=== PATIENT | female | born 1955 | race Caucasian/White ===

== ENCOUNTER → 2016-04-29 | Outpatient (CLI) | payer MEDICARE ==
[2016-04-29 14:45] LABS: ABSOLUTE EOSINOPHILS # (AUTO) 0.2 10^3/uL (0.0-0.6); ABSOLUTE LYMPHOCYTES (AUTO) 1.3 10^3/uL (0.5-4.7); ABSOLUTE MONOCYTES (AUTO) 0.4 10^3/uL (0.1-1.4); BASOPHILS % (AUTO) 0.6 % (0-2); EOSINOPHILS % (AUTO) 2.8 % (0-6); HEMOGLOBIN 16.6 g/dL (12.0-15.5); HGB HCT DIFFERENCE 0.8; LYMPHOCYTES % (AUTO) 18.5 % (13-45); MEAN CORPUSCULAR HEMOGLOBIN 29.5 pg (27.0-33.4); MEAN CORPUSCULAR HGB CONC 33.9 g/dL (32.0-36.0); MEAN CORPUSCULAR VOLUME 87 fl (80-97); MONOCYTES % (AUTO) 5.3 % (3-13); RED BLOOD COUNT 5.64 10^6/uL (3.72-5.28); RED CELL DISTRIBUTION WIDTH 13.5 % (11.5-14.0); SEGMENTED NEUTROPHILS % (AUTO) 72.8 % (42-78); WHITE BLOOD COUNT 6.8 10^3/uL (4.0-10.5)
[2016-04-29 15:04] LABS: BLOOD UREA NITROGEN 17 mg/dL (7-20); CALCIUM 10.4 mg/dL (8.4-10.2); CREATININE RESULT 0.64 mg/dL (0.52-1.25); GLUCOSE 91 mg/dL (75-110)
[2016-04-29 15:05] LABS: ALANINE AMINOTRANSFERASE 40 U/L (9-52); ALBUMIN 4.8 g/dL (3.5-5.0); ALKALINE PHOSPHATASE 119 U/L (38-126); ANION GAP 11 (5-19); ASPARTATE AMINO TRANSFERASE 33 U/L (14-36); BILIRUBIN,DIRECT 0.2 mg/dL (0.0-0.4); BILIRUBIN,TOTAL 0.6 mg/dL (0.2-1.3); CARBON DIOXIDE 32 mmol/L (22-30); CHLORIDE 100 mmol/L (98-107); POTASSIUM 4.5 mmol/L (3.6-5.0); SODIUM 143.1 mmol/L (137-145)
[2016-04-29 16:13] LABS: FOLATE > 20.00 ng/mL (>2.76)
--- NOTE | 2016-04-29 18:14 | EKG REPORT ---
SEVERITY:- BORDERLINE ECG - SINUS RHYTHM PROBABLE LEFT ATRIAL ABNORMALITY : Confirmed by: Darrion Ricketts MD 29-Apr-2016 18:13:39
== END ==
LOC: OD 13:33
PROVIDERS: ATTEND Physician Assistant Medical
DX: E66.9 Obesity, unspecified (principal); F33.1 Major depressive disorder, recurrent, moderate; F41.1 Generalized anxiety disorder; F90.0 Attention-deficit hyperactivity disorder, predominantly inattentive type; Z79.891 Long term (current) use of opiate analgesic
CPT/HCPCS: 93005; 36415; 82746; 84443; 85025; 80053; 93010; G0480; 80358

== ENCOUNTER → 2016-08-15 | Outpatient (CLI) | payer MEDICARE ==
--- NOTE | 2016-08-15 12:41 | RADIOLOGY REPORT (SQ) ---
EXAM DESCRIPTION: CT CHEST WITH COMPLETED DATE/TIME: 08/15/2016 10:31 am REASON FOR STUDY: DYSPNEA R06.00 DYSPNEA, UNSPECIFIED COMPARISON: Chest radiograph 12/29/2015 TECHNIQUE: CT scan of the chest performed using helical scanning technique with dynamic intravenous contrast injection. Images reviewed with lung, soft tissue and bone windows. Reconstructed coronal and sagittal MPR images reviewed. All images stored on PACS. All CT scanners at this facility use dose modulation, iterative reconstruction, and/or weight based d osing when appropriate to reduce radiation dose to as low as reasonably achievable (ALARA). [facility]: Dose Right [facility]: CareDose [facility]: Dose Right [facility]: Teradose 4D [facility]: [employer] CONTRAST TYPE AND DOSE: contrast/concentration: Isovue 370.00 mg/ml; Total Contrast Delivered: 80.0 ml; Total Saline Delivered: 55.0 ml RENAL FUNCTION: Creatinine 0.6 RADIATION DOSE: Up-to-date CT equipment and radiation dose reduction techniques were employed. CTDIv ol: 16.1 mGy. DLP: 610 mGy-cm. . LIMITATIONS: None. FINDINGS: LUNGS AND PLEURA: Scattered areas of scarring without a specific pattern. No effusions. No nodules. HILAR AND MEDIASTINAL STRUCTURES: No identified masses or abnormal nodes. HEART AND VASCULAR STRUCTURES: No aneurysm or dissection. No central pulmonary emboli. No pericardi al effusion. HARDWARE: None in the chest. UPPER ABDOMEN: No significant findings. Limited exam. THYROID AND OTHER SOFT TISSUES: No masses. No adenopathy. BONES: Scoliosis. OTHER: No other significant finding. IMPRESSION: Minimal areas of scarring. No focal pattern of interstitial lung disease. TECHNICAL DOCUMENTATION: JOB ID: [id number] Quality ID # [id number]: Final reports with documentation of one or more dose reduction techniques (e.g., Au tomated exposure control, adjustment of the mA and/or kV according to patient size, use of iterative reconstruction technique) 2010 [employer]- All Rights Reserved
== END ==
LOC: RAD 10:05
PROVIDERS: ATTEND Internal Medicine Pulmonary Disease
DX: R06.00 Dyspnea, unspecified (principal)
CPT/HCPCS: 71260; 82565

== ENCOUNTER → 2016-08-16 | Outpatient (CLI) | payer MEDICARE ==
[~2016-08-16] MED LIST: ALBUTEROL SULFATE 0.083% NEB 2.5 MG/3 ML AMPUL NEB ONE
[2016-08-16 13:50] LABS: ARTERIAL BLOOD BASE EXCESS -0.7 mmol/L
--- NOTE | 2016-08-18 11:08 | PULMONARY FUNCTION TEST ---
DATE OF SERVICE: 08/16/2016 THE VITAL CAPACITY IS SLIGHTLY DECREASED. THE EXPIRATORY FLOW RATES ARE SLIGHTLY DECREASED. THE FEV1/VC IS 80%, PREDICTED: 84% LUNG VOLUMES BY NITROGEN WASH OUT METHOD SHOW: TLC IS 86% OF PREDICTED FRC IS 116% OF PREDICTED RV IS 109% OF PREDICTED THE DLCO IS 15.5, 65% OF PREDICTED. THE RV/TLC RATIO IS 47% PREDICTED 38% AFTER BRONCHODILATOR, EXPIRATORY FLOW RATES SHOW NO SIGNIFICANT CHANGE. IMPRESSION: GOOD PATIENT EFFORT. SLIGHT OBSTRUCTIVE DEFECT. LUNG VOLUMES ARE NORMAL. DIFFUSING CAPACITY IS MODERATELY DECREASED. CC: MICHELLE CHRISTIANSON MD > NICOLE
== END ==
LOC: RT 13:24
PROVIDERS: ATTEND Internal Medicine Pulmonary Disease
DX: R06.00 Dyspnea, unspecified (principal)
CPT/HCPCS: 82803; 36600; 94729 ×2; 94727 ×2; 94060 ×2; A9270

== ENCOUNTER → 2017-11-06 | Outpatient (CLI) | payer MEDICARE ==
--- NOTE | 2017-11-06 16:01 | EKG REPORT ---
SEVERITY:- OTHERWISE NORMAL ECG - SINUS OR ECTOPIC ATRIAL RHYTHM : Confirmed by: Amy Jones 06-Nov-2017 15:59:25
== END ==
LOC: OD 14:08
PROVIDERS: ATTEND Physician Assistant
DX: G89.4 Chronic pain syndrome (principal); Z79.891 Long term (current) use of opiate analgesic
CPT/HCPCS: 93005; 36415; 93010; G0480; 80358

== ENCOUNTER → 2019-01-08 | Outpatient (CLI) | payer MEDICARE ==
--- NOTE | 2019-01-08 14:29 | EKG REPORT ---
SEVERITY:- NORMAL ECG - SINUS RHYTHM : Confirmed by: Loulou Brock MD 08-Jan-2019 14:28:15
== END ==
LOC: OD 10:14
PROVIDERS: ATTEND Physician Assistant
DX: Z79.891 Long term (current) use of opiate analgesic (principal)
CPT/HCPCS: 93005; 36415; 93010; G0480; 80358

== ENCOUNTER 2020-03-06 11:05 | Emergency (ER) | payer MEDICARE ==
[2020-03-06] MEDS ORDERED: ALBUTEROL SULFATE HFA (90 MCG/PUFF) 8 GM MDI (1 MDI/ER DISP) IH ONE (11:33)
--- NOTE | 2020-03-06 11:36 | ER Document Report ---
ED Medical Screen (RME) - General Stated Complaint: DIFFICULTY BREATHING Time Seen by Provider: 03/06/20 11:28 Primary Care Provider: GEORGIA DUARTE PA-C [Primary Care Provider] - Follow up as needed Notes: Patient states that she has had difficulty breathing for the past 3 weeks. Patient went to a pain management appointment today and ran out of oxygen in the office on her portable tank. Staff there did apply oxygen in the office althou gh were unable to get a pulse ox reading. They advised patient to come here for her symptoms. Patient oxygen saturation in triage was 96%. Patient does report a history of chronic back pain and history of scarring to the lung after a pneumothorax, although denies any history of any lung disease. I have greeted and performed a rapid initial assessment of this patient. A comprehensive ED assessment and evaluation of the patient, analysis of test results and completion of the medical decision making process will be conducted by additional ED providers. TRAVEL OUTSIDE OF THE [place] IN LAST 30 DAYS: No - Related Data Allergies/Adverse Reactions: Penicillins Allergy (Verified 03/06/20 11:30) Past Medical History - Past Medical History Cardiac Medical History: Reports: Hx DVT Traumatic Medical History: Reports: Hx Pneumothorax Past Surgical History: Reports: Hx Cholecystectomy, Hx Thyroid Surgery - removed - Immunizations Hx Diphtheria, Pertussis, Tetanus Vaccination: Yes Physical Exam - Vital signs Vitals: Temp Pulse Resp BP Pulse Ox 97.9 F 80 24 H 109/52 L 96 03/06/20 11:23 03/06/20 11:23 03/06/20 11:23 03/06/20 11:23 03/06/20 11:23 - Respiratory Respiratory status: Tachypnea Chest status: Nontender Breath sounds: Wheezing - Scattered Course - Vital Signs Vital signs: Temp Pulse Resp BP Pulse Ox 97.9 F 80 24 H 109/52 L 96 03/06/20 11:23 03/06/20 11:23 03/06/20 11:23 03/06/20 11:23 03/06/20 11:23 Doctor's Discharge - Discharge Referrals: GEORGIA DUARTE PA-C [Primary Care Provider] - Follow up as needed
--- NOTE | 2020-03-06 12:50 | RADIOLOGY REPORT (SQ) ---
EXAM DESCRIPTION: CHEST SINGLE VIEW IMAGES COMPLETED DATE/TIME: 03/06/2020 12:23 pm REASON FOR STUDY: sob COMPARISON: 12/29/2015 EXAM PARAMETERS: NUMBER OF VIEWS: One view. TECHNIQUE: Single frontal radiographic view of the chest acquired. RADIATION DOSE: NA LIMITATIONS: None. FINDINGS: LUNGS AND PLEURA: No focal consolidation, mass or pneumothorax. No pleural effusion. MEDIASTINUM AND HILAR STRUCTURES: No masses. Contour normal. HEART AND VASCULAR STRUCTURES: Heart normal in size. Normal vasculature. BONES: Dextroconvex lateral curvature of the lower thoracic spine. HARDWARE: None in the chest. OTHER: No other significant finding. IMPRESSION: No evidence of acute cardiopulmonary abnormality. TECHNICAL DOCUMENTATION: JOB ID: [id number] 2010 [employer]- All Rights Reserved Reading location - IP/workstation name: [email or web address]
[2020-03-06 13:45] LABS: ABSOLUTE EOSINOPHILS # (AUTO) 0.1 10^3/uL (0.0-0.6); ABSOLUTE LYMPHOCYTES (AUTO) 0.7 10^3/uL (0.5-4.7); ABSOLUTE MONOCYTES (AUTO) 0.3 10^3/uL (0.1-1.4); ABSOLUTE NEUT (AUTO) 5.9 10^3/uL (1.7-8.2); BASOPHILS % (AUTO) 0.5 % (0-2); EOSINOPHILS % (AUTO) 1.4 % (0-6); HEMATOCRIT 26.5 % (36.0-47.0); HEMOGLOBIN 8.7 g/dL (12.0-15.5); LYMPHOCYTES % (AUTO) 10.3 % (13-45); MEAN CORPUSCULAR HEMOGLOBIN 27.4 pg (27.0-33.4); MEAN CORPUSCULAR HGB CONC 32.7 g/dL (32.0-36.0); MEAN CORPUSCULAR VOLUME 84 fl (80-97); MONOCYTES % (AUTO) 4.2 % (3-13); PLATELET COUNT 212 10^3/uL (150-450); RED BLOOD COUNT 3.17 10^6/uL (3.72-5.28); RED CELL DISTRIBUTION WIDTH 14.7 % (11.5-14.0); SEGMENTED NEUTROPHILS % (AUTO) 83.6 % (42-78); TOTAL CELLS COUNTED % (AUTO) 100 %; WHITE BLOOD COUNT 7.1 10^3/uL (4.0-10.5)
[2020-03-06 13:56] LABS: ALBUMIN 3.5 g/dL (3.5-5.0); ALKALINE PHOSPHATASE 100 U/L (38-126); ANION GAP 10 (5-19); ASPARTATE AMINO TRANSFERASE 21 U/L (14-36); BILIRUBIN,DIRECT 0.5 mg/dL (0.0-0.4); BILIRUBIN,TOTAL 2.3 mg/dL (0.2-1.3); BLOOD UREA NITROGEN 58 mg/dL (7-20); CALCIUM 8.7 mg/dL (8.4-10.2); CARBON DIOXIDE 33 mmol/L (22-30); CHLORIDE 92 mmol/L (98-107); CREATINE KINASE 52 U/L (30-135); GLUCOSE 108 mg/dL (75-110); POTASSIUM 3.7 mmol/L (3.6-5.0); TOTAL PROTEIN 6.9 g/dL (6.3-8.2)
[2020-03-06 14:08] LABS: NT PRO BNP 212 pg/mL (<125)
[2020-03-06 14:09] LABS: TROPONIN I < 0.012 ng/mL
[2020-03-06 14:45] LABS: INTERNATIONAL RATION (INR) 1.12; PROTHROMBIN TIME 14.6 SEC (11.4-15.4)
[2020-03-06 14:48] LABS: D-DIMER 1.22 ug/mL (0.00-0.50)
--- NOTE | 2020-03-06 15:04 | ER Document Report ---
Entered by JAEL JAY SCRIBE 03/06/20 1219 Acting as scribe for:FAUSTO PERALTA MD ED General - General Chief Complaint: Breathing Difficulty Stated Complaint: DIFFICULTY BREATHING Time Seen by Provider: 03/06/20 11:28 Primary Care Provider: GEORGIA DUARTE PA-C [PHYSICIAN CERTIFIED [employer]] - Follow up as needed Mode of Arrival: Wheelchair Information source: Patient Notes: This 64 year old female patient presents to the ED today with complaints of difficulty breathing for the past x3 weeks. Patient states that she has been on O2 dependent on 2L at home for the past x3 years and becomes short of breath with exertion even while on O2. She states that she ran out of oxygen on her portable tank while she was at the pain management office today and staff were unable to get a pulse ox reading, so they sent her here for evaluation. She does have oxygen at home. She also mentions that her left lower leg has been swollen and firm for the past x3 weeks. The patient does report that she had some veins in her left posterior calf first recently. TRAVEL OUTSIDE OF THE [place] IN LAST 30 DAYS: No - Related Data Allergies/Adverse Reactions: Penicillins Allergy (Verified 03/06/20 11:30) Home Medications: oxygen, pain management Past Medical History - General Information source: Patient, [facility] Records - Social History Smoking Status: Never Smoker Cigarette use (# per day): No Chew tobacco use (# tins/day): No Smoking Education Provided: No Frequency of alcohol use: None Drug Abuse: None Family History: Reviewed & Not Pertinent Patient has homicidal ideation: No - Past Medical History Cardiac Medical History: Reports: Hx DVT Traumatic Medical History: Reports: Hx Pneumothorax Past Surgical History: Reports: Hx Cholecystectomy, Hx Thyroid Surgery - thyroidectomy - Immunizations Hx Diphtheria, Pertussis, Tetanus Vaccination: Yes Review of Systems - Review of Systems Constitutional: No symptoms reported EENT: No symptoms reported Cardiovascular: No symptoms reported Respiratory: See HPI, Short of breath Gastrointestinal: No symptoms reported Genitourinary: No symptoms reported Female Genitourinary: No symptoms reported Musculoskeletal: See HPI, Leg swelling Skin: No symptoms reported Hematologic/Lymphatic: No symptoms reported Neurological/Psychological: No symptoms reported -: Yes All other systems reviewed and negative Physical Exam - Vital signs Vitals: Temp Pulse Resp BP Pulse Ox 97.9 F 80 24 H 109/52 L 96 03/06/20 11:23 03/06/20 11:23 03/06/20 11:23 03/06/20 11:23 03/06/20 11:23 - General General appearance: Alert In distress: None - HEENT Head: Normocephalic, Atraumatic Eyes: Normal Extraocular movements intact: Yes Pupils: PERRL Neck: Normal, Supple - Cardiovascular Rhythm: Regular Heart sounds: Normal auscultation Murmur: No - Abdominal Inspection: Morbidly Obese Distension: No distension Bowel sounds: Normal Tenderness: Nontender - Abdomen soft Organomegaly: No organomegaly - Rectal Tenderness: No Stool: Heme negative Hemorrhoids: None - Back Back: Normal, Nontender - Extremities General upper extremity: Normal inspection General lower extremity: Edema - There is pitting edema to the left lower leg around the ankle. Right lower leg is not edematous. Calf: Tender - Left calf is grossly swollen, firm, tender. The posterior aspect is ecchymotic with this grossly swollen area extending up to the popliteal fossa where it seems to curve inward into the fossa suggesting this is all contained hematoma swelling and limited to the posterior calf. - Neurological Neuro grossly intact: Yes Orientation: AAOx4 [place] Coma Scale Eye Opening: Spontaneous [place] Coma Scale Verbal: Oriented [place] Coma Scale Motor: Obeys Commands [place] Coma Scale Total: 15 - Psychological Associated symptoms: Normal affect, Normal mood - Skin Skin Temperature: Warm Skin Moisture: Dry Skin Color: Normal Course - Re-evaluation Re-evalutation: 03/06/20 19:29 Last time patient had CBC or chemistries done here was on 04/29/2016. At that time she had a hemoglobin of 16.6 with RBC of 5.64, today her hemoglobin is 8.7 with RBC of 3.17 the MCV and MCH are not appreciably changed. Her BUN was 17 with creatinine 0.64, today the BUN is 58 with a creatinine of 1.58 03/06/20 19:45 - Vital Signs Vital signs: Temp Pulse Resp BP Pulse Ox 97.9 F 80 24 H 109/52 L 96 03/06/20 11:23 03/06/20 11:23 03/06/20 11:23 03/06/20 11:23 03/06/20 11:23 - Laboratory Results Result Diagrams: 03/06/20 13:12 03/06/20 13:12 Laboratory Results Interpreted: 03/06/20 03/06/20 03/06/20 13:12 13:12 13:12 RBC 3.17 L Hgb 8.7 L Hct 26.5 L RDW 14.7 H Lymph % (Auto) 10.3 L Seg Neutrophils % 83.6 H D-Dimer Sodium 134.6 L Chloride 92 L Carbon Dioxide 33 H BUN 58 H Creatinine 1.58 H Est GFR ( Amer) 40 L Est GFR (MDRD) Non-Af 33 L Total Bilirubin 2.3 H Direct Bilirubin 0.5 H NT-Pro-B Natriuret Pep 212 H 03/06/20 13:12 RBC Hgb Hct RDW Lymph % (Auto) Seg Neutrophils % D-Dimer 1.22 H Sodium Chloride Carbon Dioxide BUN Creatinine Est GFR ( Amer) Est GFR (MDRD) Non-Af Total Bilirubin Direct Bilirubin NT-Pro-B Natriuret Pep Critical Laboratory Results Reviewed: No Critical Results - Radiology Results Radiology Results Interpreted: 03/06/20 19:25 Venous Doppler does not show DVT in the left leg. Critical Radiology Results Reviewed: No Critical Results - CTA chest shows a dilated superior vena cava and inferior vena cava and left brachiocephalic vein. Mild left cardiomegaly. There is decreased lung volume bilaterally which is increased compared to 2017. Nonspecific bilateral interstitial and groundglass opacities mildly increased since 2017. - EKG Interpretation by De EKG shows normal: Sinus rhythm, [place], Intervals, QRS Complexes, ST-T Waves Rate: Normal - 78 Rhythm: NSR, PVC's Discharge - Discharge Clinical Impression: Chronic shortness of breath, Dyspnea on exertion, Renal insufficiency Anemia Qualifiers: Anemia type: unspecified type Qualified Code(s): D64.9 - Anemia, unspecified Condition: Stable Disposition: HOME, SELF-CARE Additional Instructions: Your evaluation today shows the most likely cause of your shortness of breath is your anemia and worsening interstitial lung disease. Your left leg has a large bruised area due to venous bleeding. There is no evidence of blood clots in the vein system. Elevate your leg is much as possible to help the swelling go down. You should take copies of the CT report, and the lab work provided to follow-up with your primary care provider next week. RETURN TO THE EMERGENCY ROOM IF ANY NEW OR WORSENING SYMPTOMS. Referrals: GEORGIA DUARTE PA-C [PHYSICIAN CERTIFIED MA[employer]] - Follow up in 3-5 days I personally performed the services described in the documentation, reviewed and edited the documentation which was dictated to the scribe in my presence, and it accurately records my words and actions.
[2020-03-06] MEDS ORDERED: NORMAL SALINE 1000 ML 1,000 ML IV ONE (19:00)
--- NOTE | 2020-03-06 19:02 | RADIOLOGY REPORT (SQ) ---
EXAM DESCRIPTION: VENOUS UNILATERAL LOWER IMAGES COMPLETED DATE/TIME: 03/06/2020 6:48 pm REASON FOR STUDY: Left leg swollen firm tender COMPARISON: None. TECHNIQUE: Dynamic and static patel scale and color images acquired of the left leg venous system. Se lected spectral images acquired with additional compression and augmentation maneuvers. The contralat eral common femoral vein and saphenofemoral junction were also imaged. Images stored on PACS. LIMITATIONS: None. FINDINGS: COMMON FEMORAL: Normal phasicity, compression and augmentation. No visualized echogenic ma terial on patel scale. No defects on color images. FEMORAL: Normal compression and augmentation. No visualized echogenic material on patel scale. No defe cts on color images. POPLITEAL: Normal compression, augmentation. No visualized echogenic material on patel scale. No defec ts on color images. CALF VESSELS: Normal compression, augmentation. No visualized echogenic material on patel scale. No de fects on color images. Peroneal veins not seen. GSV and SSV: Normal compression, augmentation. No visualized echogenic material on patel scale. No def ects on color images. ANY DEEP VENOUS INSUFFICIENCY: Not evaluated. ANY EVIDENCE OF POPLITEAL CYST: No. OTHER: No other significant finding. CONTRALATERAL COMMON FEMORAL VEIN AND SAPHENOFEMORAL JUNCTION: Normal phasicity, compression and augmentation. No visualized echogenic material on patel scale. No de fects on color images. IMPRESSION: NO EVIDENCE DVT OR SVT IN THE LEFT LEG. TECHNICAL DOCUMENTATION: JOB ID: [id number] 2010 [employer]- All Rights Reserved Reading location - IP/workstation name: [email or web address]
--- NOTE | 2020-03-06 19:38 | EKG REPORT ---
SEVERITY:- OTHERWISE NORMAL ECG - SINUS RHYTHM VENTRICULAR PREMATURE COMPLEX : Confirmed by: Bruce Concepcion MD 06-Mar-2020 19:36:55
--- NOTE | 2020-03-06 20:35 | RADIOLOGY REPORT (SQ) ---
EXAM DESCRIPTION: CT CHEST ANGIOGRAPHY WITH IV CONTRAST COMPLETED DATE/TME: 03/06/2020 19:53 CLINICAL HISTORY: 64 years, Female, ANN, elevated d-dimer, COMPARISON: Chest x-ray from today. CT chest 08/15/2016. TECHNIQUE: 68 mL of Isovue-300. Sagittal coronal reconstruction. Images stored on PACS. All CT scanners at this facility use dose modulation, iterative reconstruction, and/or weight based dosing when appropriate to reduce radiation dose to as low as reasonably achievable (ALARA). FINDINGS: Borderline 2.9 cm main pulmonary artery. No evidence for pulmonary embolus.. Aorta is unremarkable. Dilated SVC and IVC and left brachiocephalic vein. Mild left cardiomegaly. No evidence for mediastinal adenopathy or pericardial effusion. Decreased lung volume bilaterally more obvious compared to CT from 2017. Nonspecific bilateral interstitial and groundglass opacities. Some are present 2017. Mildly increased. No suspicious pleural disease. Scoliosis. Previous posterior bony fusion. No suspicious spinal stenosis. Limited images of the upper abdomen demonstrates intra-axial Biliary dilatation similar to 2017.. Partially visualized right renal cyst. Partially visualized right hydronephrosis. Partially visualized the ventral hernia. IMPRESSION: 1. No evidence for pulmonary embolus. Borderline size main pulmonary artery. Left cardiomegaly. 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 2. Mildly low lung volumes appears mildly worse since 2017. 3. Nonspecific parenchymal lung abnormalities. Some were present in 2017. Currently mildly worse. May represent chronic interstitial lung disease. Cannot completely exclude superimposed acute viral pneumonia. Suggest clinical correlation. 4. Unchanged intra and extrahepatic biliary dilatation. Mild right hydronephrosis partially visualized and not included on previous study. Partially visualized ventral hernia in the upper abdomen also not included on previous study.
[2020-03-06 21:24] VITALS: BP 122/59
== END 2020-03-06 21:07 | disposition home or self-care (01) ==
LOC: ER 11:05
DX: R06.02 Shortness of breath (principal); R06.00 Dyspnea, unspecified; N28.9 Disorder of kidney and ureter, unspecified; D64.9 Anemia, unspecified; G89.29 Other chronic pain; M54.9 Dorsalgia, unspecified; Z99.81 Dependence on supplemental oxygen; Z86.718 Personal history of other venous thrombosis and embolism; Z90.49 Acquired absence of other specified parts of digestive tract
CPT/HCPCS: 93005; 99285; 96360; 36415; 82550; 85025; 85610; 80053; 84484; 85379; 83880; 93971; 71045; 71275; 93010; J7030; A9270; J3490